=== PATIENT | female | born 1975 | race Caucasian/White ===

== ENCOUNTER 2017-04-23 15:13 | Emergency (ER) | payer BC ==
--- NOTE | 2017-04-23 15:55 | EDM.PDOC ---
ED HPI GENERAL MEDICAL PROBLEM - General Chief Complaint: Chest Pain Stated Complaint: CHEST AND BACK PAIN Time Seen by Provider: 04/23/17 15:40 Source of Information: Reports: Patient History Limitations: Reports: No Limitations - History of Present Illness INITIAL COMMENTS - FREE TEXT/NARRATIVE: 41-year-old female presents to the ED due to pain in her mid back that seems to radiate through to her front chest. It's been present all day but it became worse about 2:00 this afternoon. It seems to be in between her shoulder blades and radiates through to the front making it felt like a pressure almost and some difficulty getting a full deep breath. She denies cough or sputum production. No fever or chills. Has had similar type pain but not to this severity. No previous abdominal surgery. She does not feel like she needs to burp or belch. She had does not experience reflux disease. No odynophagia. No known heart disease. Nonsmoker. Onset: Today Onset Date: 04/23/17 Onset Time: 14:30 Duration: Hour(s):, Getting Worse Location: Reports: Chest, Back (intra-scapular area.) Quality: Reports: Ache, Pressure (mild) Severity: Mild Improves with: Reports: None Worsens with: Reports: Other (certain movements and positions seem to make it worse) Context: Denies: Activity, Exercise, Lifting, Sick Contact, Trauma, Other Associated Symptoms: Reports: Chest Pain, Shortness of Breath (subjective sensation of shortness of breath.). Denies: No Other Symptoms, Confusion (more like a pressure and a sense of not able to get a deep breath.), Cough, cough w sputum, Diaphoresis, Fever/Chills, Headaches, Loss of Appetite, Malaise, Nausea/ Vomiting, Rash, Seizure, Syncope, Weakness Treatments GRUBBER: Reports: Other (see below) (none.) Upper Back Pain Score (Numeric/FACES): 6 Chest Pain Score (Numeric/FACES): 5 - Related Data Allergies Allergy/AdvReac Type Severity Reaction Status Date / Time clarithromycin [From Biaxin] Allergy Intermediate Facial Verified 04/23/17 15:19 Swelling Home Meds: Home Meds Ibuprofen [Advil] 3 tab PO ASDIRECTED PRN 07/26/14 [History] LORazepam [Ativan] 0.5 mg PO ASDIRECTED PRN 07/26/14 [History] Zolpidem [Ambien] 5 mg PO BEDTIME PRN 04/23/17 [History] Past Medical History - Past Health History Medical/Surgical History: Denies Medical/Surgical History HEENT History: Reports: Impaired Vision Other HEENT History: wears eyeglasses for computer work. Cardiovascular History: Reports: High Cholesterol, Other (See Below) Other Cardiovascular History: not on meds. SENIOR APPLICATIONS ANALYST History: Reports: Musculoskeletal History: Reports: Fracture Psychiatric History: Reports: Anxiety, Other (See Below) Other Psychiatric History: insomnia at times. Hematologic History: Reports: Anemia, Iron Deficiency - Infectious Disease History Infectious Disease History: Reports: Chicken Pox - Past Surgical History Female Surgical History: Reports: Section Social & Family History - Tobacco Use Smoking Status *Q: Never Smoker Second Hand Smoke Exposure: No - Caffeine Use Caffeine Use: Reports: Coffee - Alcohol Use Days Per Week of Alcohol Use: 0 - Recreational Drug Use Recreational Drug Use: No - Living Situation & Occupation Living situation: Reports: Occupation: Employed ED ROS GENERAL - Review of Systems Review Of Systems: See Below Constitutional: Denies: Fever, Chills, Malaise, Weakness, Night Sweats, Diaphoresis, Decreased Appetite, Weight Gain HEENT: Reports: No Symptoms Respiratory: Reports: Shortness of Breath. Denies: Wheezing, Pleuritic Chest Pain (subjective sensation of being a little short of breath or not able to get a full deep breath.), Cough, Sputum, Hemoptysis, Other Cardiovascular: Reports: Chest Pain (as above pressure sensation central chest that seems to start in her mid back --). Denies: Blood Pressure Problem ( intrascapular area radiating through to the front), Claudication, Dyspnea on Exertion, Edema, Lightheadedness, Orthopnea, Palpitations Endocrine: Reports: No Symptoms GI/Abdominal: Reports: No Symptoms : Reports: No Symptoms Musculoskeletal: Reports: Back Pain (Central back --) Skin: Reports: No Symptoms (transscapular.) Neurological: Reports: No Symptoms Psychiatric: Reports: No Symptoms Hematologic/Lymphatic: Reports: No Symptoms Immunologic: Reports: No Symptoms ED EXAM, GENERAL - Physical Exam Exam: See Below Exam Limited By: No Limitations General Appearance: Alert, WD/WN, No Apparent Distress, Other (vital signs reveal blood pressure slightly elevated O2 sats 100% on room air pulse 72 and sinus respiratory 20/m) Neck: Normal Inspection, Supple, Non-Tender, Full Range of Motion. No: Lymphadenopathy (L), Lymphadenopathy (R) Respiratory/Chest: No Respiratory Distress, Lungs Clear, Normal Breath Sounds, No Accessory Muscle Use, Respiratory Distress (I'll tachypnea but I think she's just a little anxious.) Cardiovascular: Normal Peripheral Pulses, Regular Rate, Rhythm, No Edema, No Gallop, No Murmur, No Rub Peripheral Pulses: 3+: Posterior Tibial (L), Posterior Tibial (R), Dorsalis Pedis (L), Dorsalis Pedis (R) GI/Abdominal: Normal Bowel Sounds, Soft, Non-Tender, No Organomegaly, No Distention, Other (negative Soria sign) Back Exam: Normal Inspection, Full Range of Motion, Vertebral Tenderness ( identified rib head subluxation on the right side at thoracic 67 level which was exquisitely tender and identified her back pain.) Extremities: Normal Inspection, Normal Range of Motion, Non-Tender, No Pedal Edema, Normal Capillary Refill Neurological: Alert, Oriented, CN II-XII Intact, Normal Cognition, Normal Gait, Normal Reflexes Psychiatric: Normal Affect, Normal Mood Skin Exam: Warm, Dry, Intact, Normal Color, No Rash Course - Vital Signs Last Recorded V/S: Last Vital Signs Temp 36.8 C 04/23/17 15:21 Pulse 68 04/23/17 16:40 Resp 16 04/23/17 16:40 BP 103/72 04/23/17 16:40 Pulse Ox 100 04/23/17 16:40 - Radiology Interpretation Free Text/Narrative:: 41-year-old female presents to the ED with back pain which is intrascapular and radiates through to the front. Gives her a subjective sensation of dyspnea or not able to get a full deep breath. Was there this morning but milder and became worse after dinner today. Associated nausea vomiting. No cough or sputum production no fever or chills. Examination reveals rib head subluxation on the right side at thoracic 67 which is exquisitely tender to touch with overlying paraspinal muscle spasm. Lungs are completely clear to stage percussion heart was sinus murmurs are identified ECG showed sinus rhythm at 75/m and is completely normal. Pain is definitely not cardiac in origin. Plan 1 view chest x -ray to be obtained. Suspect musculoskeletal in origin. - Re-Assessments/Exams Free Text/Narrative Re-Assessment/Exam: 04/23/17 16:35: chest x-ray is within normal limits. Patient reassured current chest discomfort is referred pain from rib head subluxation in her back. Every time she breathes this area moves and gives her a subjective sensation of being short of breath. Advise treatment to be anti-inflammatory such as Advil 6 mg every 6 hours or Aleve 2 tablets every 8 hours until she can follow-up with chiropractor to have the rib had adjusted.apply icy hot to the area as well to give you her some temporary relief. Departure - Departure Time of Disposition: 16:28 Disposition: Home, Self-Care 01 Condition: Fair Clinical Impression: Non-cardiac chest pain Acute thoracic back pain Qualifiers: Back pain laterality: right Qualified Code(s): M54.6 - Pain in thoracic spine Instructions: Back Pain, Adult, Nonspecific Chest Pain Referrals: Lacey Julian, [Primary Care Provider] - Forms: ED Department Discharge Additional Instructions: evaluation in the emergency room today in regards to development of mid back pain between the shoulder blades rating through to the anterior chest. This creates a subjective sensation of feeling somewhat short of breath or with a pressure in the chest. Identified problem on exam was that of a rib head subluxation at thoracic 67 level on the right upper back. Was exquisitely tender and overlying muscle spasm was evident. The remainder of the examination of the lungs and heart is completely normal. ECG her heart tracing is normal chest x-ray was completely normal with no abnormalities of the bones lungs or greater vessels or heart. I suspect current pain syndrome is from the rib head subluxation is the rib head has tomorrow with every breath. Suggest follow-up with a chiropractor to have the rib head replaced back into its normal position. In the meantime Motrin or Advil 600 mg every 6 hours or Aleve 2 tablets every 8 hours to relieve some of the pain and inflammation in your upper back is advised. No other treatment is felt to be necessary at this time. Follow-up if not markedly improved after chiropractic manipulation.
--- NOTE | 2017-04-23 16:11 | CR ---
Chest: Portable view of the chest was obtained. Comparison: No prior chest x-ray. Heart size and mediastinum are normal. Lungs are clear. Bony structures are grossly intact. Impression: 1. Nothing acute is identified on portable chest x-ray. Diagnostic code #1
[2017-04-23 17:54] VITALS: BP 103/72
== END 2017-04-23 16:40 | disposition home or self-care (01) ==
LOC: JD.ED 15:13
DX: M54.6 Pain in thoracic spine (principal); R07.89 Other chest pain; E78.00 Pure hypercholesterolemia, unspecified; F41.9 Anxiety disorder, unspecified; Z86.2 Personal history of diseases of the blood and blood-forming organs and certain disorders involving the immune mechanism; Z88.1 Allergy status to other antibiotic agents
CPT/HCPCS: 71010; 71010-26; 93005; 99283; 99285-25